=== PATIENT | female | born 1995 | race Caucasian/White ===

== ENCOUNTER 2021-08-03 08:54 | Emergency (ER) | payer OTHER ==
[2021-08-03] MEDS ORDERED: Ondansetron PF 4 MG/2 ML Vial ONE (09:16)
[2021-08-03] MEDS ORDERED: Dicyclomine 20 MG/2 ML VIAL ONE (09:16)
[2021-08-03 09:40] LABS: Bilirubin Neg (Negative); Blood, Urine Negative (Negative); Clarity Cloudy (Clear); Glucose, Urine (Dipstick) Normal (Negative); Ketone, Urine Negative (Negative); Leukocyte 100 (Negative); Nitrite Negative (Negative); Protein, Urine (Dipstick) 15 mg/dl (Neg-Trace); Specific Gravity, Urine 1.015 (1.002-1.036); Urobilinogen Normal mg/dL (Less than 2)
[2021-08-03 09:55] LABS: Bacteria/HPF 1+ HPF (None Seen); RBC/HPF 0-3 HPF (0-3)
[2021-08-03 09:57] LABS: ALT (SGPT) 10 U/L (8-55); AST (SGOT) 14 U/L (5-34); Alkaline Phosphatase 38 U/L (40-110); Anion Gap 13 mmol/L (10-20); BUN (Urea Nitrogen) 6 mg/dL (7.0-18.7); Bilirubin, Total 0.7 mg/dL (0.2-1.2); Calc. Creatinine Clearance 0 mL/min (70-130); Calcium 9.2 mg/dL (7.8-10.44); Carbon Dioxide 26 mmol/L (22-29); Chloride 101 mmol/L (98-107); Globulin 2.9 g/dL (2.4-3.5); Glucose 107 mg/dL (70-105); Potassium 3.5 mmol/L (3.5-5.1); Protein, Total 6.9 g/dL (6.0-8.3); Sodium 136 mmol/L (136-145)
[2021-08-03 10:08] LABS: #Eosinphils 0.2 10x3/uL (0.0-0.5); #Monocytes 0.4 10x3/uL (0.0-1.1); %Basophils 0.5 % (0.0-2.0); %Eosinophils 2.5 % (0.0-6.0); %Lymphocytes 14.9 % (18.0-47.0); %Monocytes 4.7 % (0.0-10.0); %Neutrophils 77.1 % (40.0-75.0); Hemoglobin 11.9 g/dL (12.0-15.5); Mean Corpuscular HGB CONC 34.1 g/dL (32.0-36.0); Mean Corpuscular Hemoglobin 29.9 pg (27.0-33.0); Mean Corpuscular Volume 87.7 fl (81.6-98.3); Mean Platelet Volume 9.6 fl (7.4-10.4); Platelet Count 209 10x3/uL (150-450); RBC Distribution Width 13.2 % (11.5-14.5); Red Blood Cell (RBC) Count 3.98 10x6/uL (3.90-5.03); White Blood Cell (WBC) Count 7.7 10x3/uL (3.5-10.5)
[2021-08-03] MEDS ORDERED: Metoclopramide HCl 10 MG/2 ML VIAL ONE (10:14)
[2021-08-03] MEDS ORDERED: diphenhydrAMINE 50 MG/ML VIAL ONE (10:14)
[2021-08-03] MEDS ORDERED: Acetaminophen 500 MG TAB ONE (10:14)
[2021-08-03] MEDS ORDERED: Morphine 2 MG/ML VIAL ONE (10:29)
== END 2021-08-03 12:10 | disposition home or self-care (01) ==
LOC: CSHERS 08:54
DX: O21.9 Vomiting of pregnancy, unspecified (principal); O99.891 Other specified diseases and conditions complicating pregnancy; R82.71 Bacteriuria; Z3A.14 14 weeks gestation of pregnancy
CPT/HCPCS: 80053; 81003; 81015; 84702; 85025; 96365; 96372; 96375; J0500; J1200; J2270; J2405; J2765

== ENCOUNTER 2021-08-05 22:42 | Emergency (ER) | payer OTHER ==
[2021-08-05] MEDS ORDERED: diphenhydrAMINE 50 MG/ML VIAL ONE (23:49)
[2021-08-05] MEDS ORDERED: Metoclopramide HCl 10 MG/2 ML VIAL ONE (23:50)
[2021-08-06 00:18] LABS: #Eosinphils 0.1 10x3/uL (0.0-0.5); #Monocytes 0.5 10x3/uL (0.0-1.1); #Neutrophils 7.2 10x3/uL (1.5-8.4); %Basophils 0.3 % (0.0-2.0); %Eosinophils 1.2 % (0.0-6.0); %Lymphocytes 16.6 % (18.0-47.0); %Monocytes 5.7 % (0.0-10.0); %Neutrophils 75.9 % (40.0-75.0); Hemoglobin 11.9 g/dL (12.0-15.5); Mean Corpuscular HGB CONC 33.7 g/dL (32.0-36.0); Mean Corpuscular Hemoglobin 29.8 pg (27.0-33.0); Mean Corpuscular Volume 88.3 fl (81.6-98.3); Mean Platelet Volume 9.5 fl (7.4-10.4); Platelet Count 255 10x3/uL (150-450); RBC Distribution Width 13.1 % (11.5-14.5); White Blood Cell (WBC) Count 9.5 10x3/uL (3.5-10.5)
[2021-08-06 00:32] LABS: ALT (SGPT) 11 U/L (8-55); AST (SGOT) 14 U/L (5-34); Albumin 4.2 g/dL (3.5-5.0); Alkaline Phosphatase 36 U/L (40-110); Anion Gap 16 mmol/L (10-20); BUN (Urea Nitrogen) 7 mg/dL (7.0-18.7); Bilirubin, Total 0.8 mg/dL (0.2-1.2); Calc. Creatinine Clearance 0 mL/min (70-130); Calcium 9.5 mg/dL (7.8-10.44); Carbon Dioxide 26 mmol/L (22-29); Chloride 97 mmol/L (98-107); Globulin 2.8 g/dL (2.4-3.5); Glucose 99 mg/dL (70-105); Lipase 6 U/L (8-78); Potassium 3.2 mmol/L (3.5-5.1); Sodium 136 mmol/L (136-145)
[2021-08-06 02:05] LABS: Bilirubin Neg (Negative); Blood, Urine 10 (Negative); Clarity Slightly Cloudy (Clear); Glucose, Urine (Dipstick) Normal (Negative); Ketone, Urine 150 mg/dL (Negative); Leukocyte 500 (Negative); Nitrite Negative (Negative); Protein, Urine (Dipstick) Negative (Neg-Trace); Specific Gravity, Urine 1.015 (1.002-1.036); Urobilinogen Normal mg/dL (Less than 2); pH, Urine 6.5 (5.0-9.0)
[2021-08-06 02:15] LABS: Bacteria/HPF 1+ HPF (None Seen); Renal Epithelial 0-3 HPF (None Seen); WBC/HPF 21-50 HPF (0-3)
== END 2021-08-06 02:55 | disposition home or self-care (01) ==
LOC: CSHERS 22:42
DX: O21.0 Mild hyperemesis gravidarum (principal); O23.42 Unspecified infection of urinary tract in pregnancy, second trimester; N39.0 Urinary tract infection, site not specified; O99.322 Drug use complicating pregnancy, second trimester; F19.10 Other psychoactive substance abuse, uncomplicated; O99.332 Smoking (tobacco) complicating pregnancy, second trimester; F17.210 Nicotine dependence, cigarettes, uncomplicated; Z3A.14 14 weeks gestation of pregnancy
CPT/HCPCS: 80053; 81003; 81015; 83690; 85025; 96361; 96374; 96375; J1200; J2765

== ENCOUNTER 2022-01-13 20:28 | Day surgery (SDC) | payer OTHER ==
[2022-01-13] MEDS ORDERED: hydrALAZINE 20 MG/ML VIAL SLOW IVP PRN (22:04)
== END 2022-01-13 22:43 | disposition home or self-care (01) ==
LOC: CSHLD/OP 20:28
PROVIDERS: ATTEND Family Medicine
DX: O47.1 False labor at or after 37 completed weeks of gestation (principal); Z3A.38 38 weeks gestation of pregnancy

== ENCOUNTER 2022-01-22 14:04 | Inpatient (IN) | payer OTHER ==
[~2022-01-22 14:04] MED LIST: Bupivacaine/Epinephrine 0.25% 30 ML VIAL ONE
[2022-01-22] MEDS ORDERED: Lidocaine 1% (PF) 30 ML VIAL SC PRN (15:39)
[2022-01-22] MEDS ORDERED: Acetaminophen 500 MG TAB PO PRN (15:39)
[2022-01-22] MEDS ORDERED: Ondansetron PF 4 MG/2 ML Vial IVP PRN ×2 (15:39→17:56)
[2022-01-22] MEDS ORDERED: Butorphanol Tartrate 1 MG/ML VIAL SLOW IVP PRN (15:39)
[2022-01-22] MEDS ORDERED: HYDROcodone/Acetaminophen 5/325 mg Tablet PO PRN (15:39)
[2022-01-22] MEDS ORDERED: Ibuprofen 800 MG TAB PO PRN (15:39)
[2022-01-22] MEDS ORDERED: Misoprostol 200 MCG TAB PR PRN (15:39)
[2022-01-22] MEDS ORDERED: hydrALAZINE 20 MG/ML VIAL SLOW IVP PRN (15:39)
[2022-01-22] MEDS ORDERED: Diphenoxylate HCl/Atropine Tablet PO PRN (15:39)
[2022-01-22] MEDS ORDERED: Methylergonovine 0.2 MG/ML VIAL IM PRN (15:39)
[2022-01-22] MEDS ORDERED: Carboprost 250 MCG/ML AMP IM PRN (15:39)
[2022-01-22] MEDS ORDERED: Promethazine HCl 25 MG/ML VIAL IM PRN ×2 (15:39→17:56)
[2022-01-22] MEDS ORDERED: NS w/ Oxytocin 30 units 500 ML IV SCH ×2 (15:45)
[2022-01-22] MEDS: Lactated Ringer's 1,000 ML IV SCH ×4 (16:04→18:24)
[2022-01-22 17:05] LABS: Hemoglobin 10.9 g/dL (12.0-15.5); Mean Corpuscular HGB CONC 33.6 g/dL (32.0-36.0); Mean Corpuscular Hemoglobin 29.9 pg (27.0-33.0); Mean Corpuscular Volume 88.8 fl (81.6-98.3); Mean Platelet Volume 10.1 fl (7.4-10.4); Platelet Count 177 10x3/uL (150-450); RBC Distribution Width 13.5 % (11.5-14.5); Red Blood Cell (RBC) Count 3.65 10x6/uL (3.90-5.03); White Blood Cell (WBC) Count 8.3 10x3/uL (3.5-10.5)
[2022-01-22] MEDS ORDERED: Fentanyl 2 mcg/Bup 0.1% Cadd 100 ML ONE (17:16)
[2022-01-22] MEDS ORDERED: NS w/ Oxytocin 30 units 500 ML ONE (17:16)
[2022-01-22 17:39] LABS: Hep B Surf Ag Non-Reactive S/CO (NonReactive)
[2022-01-22 17:40] LABS: Syphilis Antibody Nonreactive (Nonreactive); Syphilis Antibody Index 0.12 S/CO (<1.00 Non-Reactive)
[2022-01-22] MEDS ORDERED: ePHEDrine Sulfate 50 MG/10 ML VIAL SLOW IVP PRN (17:56)
[2022-01-22] MEDS ORDERED: Moisturizing Cream (Eucerin) 113 GM JAR TOP PRN (17:56)
[2022-01-22] MEDS ORDERED: Lactated Ringer's 500 ML IV PRN (17:56)
[2022-01-22] MEDS ORDERED: Acetaminophen 325 MG TAB PO PRN (17:56)
[2022-01-22] MEDS ORDERED: Naloxone HCl 0.4 mg/ml Vial IVP PRN ×2 (17:56)
[2022-01-22] MEDS ORDERED: diphenhydrAMINE 50 MG/ML VIAL IVP PRN (17:56)
[2022-01-22] MEDS ORDERED: Fentanyl 2 mcg/Bupivacaine 0.1% Cassette 100 ML EPIDURAL SCH (18:00)
[2022-01-22] MEDS ORDERED: Communication Order-Pharmacy FS SCH (18:00)
[2022-01-22] MEDS ORDERED: Tranexamic Acid 1,000 MG/10 ML VIAL ONE (19:43)
[2022-01-22] MEDS ORDERED: Azithromycin 500 MG in Sodium Chloride 0.9% 250 ML 250 ML IVPB SCH (20:00)
[2022-01-22] MEDS ORDERED: Tranexamic Acid 1,000 MG in Sodium Chloride 0.9% 250 ML 250 ML IVPB SCH ×2 (20:00→20:10)
[2022-01-22] MEDS: CEFAZOLIN 2 GM in Sodium Chloride 0.9% 100 ML IVPB SCH (20:38)
[2022-01-23] MEDS ORDERED: Boostrix 0.5 ML (Tdap) VIAL (>/=7 yrs of age) IM ONE (00:58)
[2022-01-23] MEDS ORDERED: diphenhydrAMINE 25 MG CAP PO PRN (00:58)
[2022-01-23] MEDS ORDERED: Milk Of Magnesia 30 ML UDCUP PO PRN (00:58)
[2022-01-23] MEDS ORDERED: Promethazine HCl 25 MG/ML VIAL IM PRN (00:58)
[2022-01-23] MEDS ORDERED: Ondansetron PF 4 MG/2 ML Vial IVP PRN (00:58)
[2022-01-23] MEDS ORDERED: Lanolin Ointment 7 GM TUBE TOP PRN (00:58)
[2022-01-23] MEDS ORDERED: Bisacodyl 10 MG SUPP PR PRN (00:58)
[2022-01-23] MEDS ORDERED: HYDROcodone/Acetaminophen 5/325 mg Tablet PO PRN ×2 (00:58)
[2022-01-23] MEDS ORDERED: hydrALAZINE 20 MG/ML VIAL SLOW IVP PRN (00:58)
[2022-01-23] MEDS ORDERED: Ibuprofen 800 MG TAB PO SCH (01:00)
[2022-01-23] MEDS ORDERED: NS w/ Oxytocin 30 units 500 ML IV SCH (01:00)
[2022-01-23] MEDS ORDERED: Docusate 100 MG CAP PO SCH (01:15)
[2022-01-23 03:09] VITALS: BMI 22.6
[2022-01-23] MEDS: CEFAZOLIN 2 GM in Sodium Chloride 0.9% 100 ML IVPB SCH ×3 (05:00→20:57)
[2022-01-23] MEDS: Ibuprofen 800 MG TAB PO SCH ×3 (05:30→20:58)
[2022-01-23] MEDS: Docusate 100 MG CAP PO SCH ×2 (07:54→20:58)
[2022-01-23] MEDS: Prenatal Vitamin 1 TAB PO SCH (07:54)
[2022-01-23] MEDS: Ferrous Sulfate 325 MG TAB PO SCH ×2 (08:15→13:33)
[2022-01-23 10:20] LABS: SARS-CoV-2 NAA Rapid Test Not Detected (NotDetected)
[2022-01-24] MEDS: CEFAZOLIN 2 GM in Sodium Chloride 0.9% 100 ML IVPB SCH ×2 (05:01→12:08)
[2022-01-24] MEDS: Ibuprofen 800 MG TAB PO SCH ×2 (05:02→14:13)
[2022-01-24] MEDS: Ferrous Sulfate 325 MG TAB PO SCH (07:31)
[2022-01-24] MEDS: Prenatal Vitamin 1 TAB PO SCH (07:45)
[2022-01-24] MEDS: Docusate 100 MG CAP PO SCH (07:46)
[2022-01-24 11:33] VITALS: BP 103/53; TEMP 98
== END 2022-01-24 14:00 | disposition home or self-care (01) | DRG 807 ==
LOC: CSHLD/OP 14:04 → CSHLD 17:44 → CSHPP 01-23 00:26
PROVIDERS: ADMIT Family Medicine; ATTEND Family Medicine
PROC: 10E0XZZ Delivery of Products of Conception, External Approach (ICD-10-PCS; principal; 2022-01-22)
PROC: 10D17Z9 Manual Extraction of Products of Conception, Retained, Via Natural or Artificial Opening (ICD-10-PCS; 2022-01-22)
DX: O72.2 Delayed and secondary postpartum hemorrhage (principal); Z37.0 Single live birth; Z20.822 Contact with and (suspected) exposure to COVID-19
CPT/HCPCS: 36415; 51702; 85027; 86780; 86850; 86900; 86901; 87340; 99285; J0456; J2210; J2405; J2590; J3490; J7050; J7120; U0002

== ENCOUNTER 2023-03-13 17:12 | Emergency (ER) | payer SELFPAY ==
[2023-03-13] MEDS ORDERED: Ibuprofen 200 MG TAB ONE (17:59)
[2023-03-13 18:08] LABS: SARS-CoV-2 NAA Rapid Test Not Detected (NotDetected)
== END 2023-03-13 18:35 | disposition home or self-care (01) ==
LOC: CSHERS 17:12
DX: J06.9 Acute upper respiratory infection, unspecified (principal); F17.210 Nicotine dependence, cigarettes, uncomplicated
CPT/HCPCS: 99283

== ENCOUNTER 2023-12-17 08:10 | Emergency (ER) | payer SELFPAY, OTHER ==
[2023-12-17] MEDS ORDERED: fentaNYL 50 mcg/mL 1 mL Vial ONE ×2 (08:12→09:36)
[2023-12-17] MEDS ORDERED: Morphine 4 MG/ML VIAL ONE (08:45)
[2023-12-17 09:07] LABS: #Basophils 0.02 10x3/uL (0.0-0.2); #Eosinphils 0.36 10x3/uL (0.0-0.5); #Monocytes 0.41 10x3/uL (0.0-1.1); #Neutrophils 4.43 10x3/uL (1.5-8.4); %Basophils 0.3 % (0.0-2.0); %Eosinophils 4.8 % (0.0-6.0); %Lymphocytes 30.6 % (18.0-47.0); %Monocytes 5.4 % (0.0-10.0); %Neutrophils 58.5 % (40.0-75.0); Hematocrit 40.9 % (34.9-44.5); Hemoglobin 12.6 g/dL (12.0-15.5); Mean Corpuscular HGB CONC 30.8 g/dL (32.0-36.0); Mean Corpuscular Hemoglobin 27.2 pg (27.0-33.0); Mean Corpuscular Volume 88.1 fL (81.6-98.3); Mean Platelet Volume 9.1 fL (7.4-10.4); Platelet Count 299 10x3/uL (150-450); RBC Distribution Width 13.3 % (11.5-14.5); Red Blood Cell (RBC) Count 4.64 10x6/uL (3.90-5.03); White Blood Cell (WBC) Count 7.6 10x3/uL (3.5-10.5)
[2023-12-17 09:24] LABS: PTT 26.1 sec (22.0-33.0)
[2023-12-17 09:30] LABS: ALT (SGPT) 17 U/L (8-55); AST (SGOT) 16 U/L (5-34); Alkaline Phosphatase 56 U/L (40-110); Anion Gap 12 mmol/L (10-20); BUN (Urea Nitrogen) 8 mg/dL (7.0-18.7); Bilirubin, Total 0.5 mg/dL (0.2-1.2); Calc. Creatinine Clearance 0 mL/min (70-130); Calcium 8.9 mg/dL (7.8-10.44); Carbon Dioxide 24 mmol/L (22-29); Chloride 107 mmol/L (98-107); Estimated GFR 122; Globulin 3.4 g/dL (2.4-3.5); Glucose 129 mg/dL (70-105); Potassium 3.9 mmol/L (3.5-5.1); Protein, Total 7.4 g/dL (6.0-8.3); Sodium 139 mmol/L (136-145)
[2023-12-17 09:42] LABS: BHCG - Serum Negative (NEGATIVE); Pregs Control Background? CLEAR/WHITE (CLR/WHITE); Pregs Control Bar Appear? YES (CONTROL BAR)
== END 2023-12-17 11:03 | disposition short-term general hospital (02) ==
LOC: CSHERS 08:10
DX: S42.401A Unspecified fracture of lower end of right humerus, initial encounter for closed fracture (principal); F17.210 Nicotine dependence, cigarettes, uncomplicated; V89.2XXA Person injured in unspecified motor-vehicle accident, traffic, initial encounter; W22.10XA Striking against or struck by unspecified automobile airbag, initial encounter
CPT/HCPCS: 36415; 71045; 80053; 84703; 85025; 85610; 85730; 93005; 96374; 96375; 96376; J2272; J3010

== ENCOUNTER 2024-02-22 15:22 | Emergency (ER) | payer SELFPAY ==
[2024-02-22] MEDS ORDERED: Ibuprofen 200 MG TAB ONE (17:28)
[2024-02-22] MEDS ORDERED: Dexamethasone 10 MG/ML VIAL ONE (17:55)
== END 2024-02-22 18:34 | disposition home or self-care (01) ==
LOC: CSHERS 15:22
DX: B34.9 Viral infection, unspecified (principal); B30.9 Viral conjunctivitis, unspecified; F17.210 Nicotine dependence, cigarettes, uncomplicated
CPT/HCPCS: 87428; 99283; J1100